=== PATIENT | male | born 1990 | race Caucasian/White ===

== ENCOUNTER 2018-06-03 12:32 | Emergency (ER) | payer OTHER ==
[~2018-06-03] VITALS: Ht 172.7 cm; Wt 59.2 kg
[2018-06-03 12:34] VITALS: Ht 172.7 cm; Wt 59.2 kg
[2018-06-03] MEDS ORDERED: KETOROLAC 30 MG INJ IV STA (12:54)
--- NOTE | 2018-06-03 12:55 | ERD ---
ER Documentation Chief Complaint Chief Complaint sorethroat, right ear pain x1 wk, seen 3x urgent care no relief HPI 27-year-old male, previously healthy, presents to the emergency department, complaining of 1 week with persistent sore throat, associated with right ear pain, cough and general malaise. ROS All systems reviewed and are negative except as per history of present illness. Medications Home Meds Active Scripts Ibuprofen (Ibuprofen) 100 Mg/5 Ml Oral.susp, 15 ML PO Q6H PRN for PAIN AND OR ELEVATED TEMP, #4 OZ Prov:DELROY HUTTON MD 06/03/18 Allergies Allergies: Coded Allergies: Penicillins (Unverified Allergy, Unknown, 06/03/18) PMhx/Soc Hx Alcohol Use: No Hx Substance Use: No Hx Tobacco Use: No Smoking Status: Never smoker FmHx Family History: No diabetes, No coronary disease Physical Exam Vitals Vital Signs Date Temp Pulse Resp B/P (MAP) Pulse Ox O2 O2 Flow FiO2 Time Delivery Rate 06/03/18 98.1 66 16 118/85 99 Room Air 15:55 (96) 06/03/18 97.8 87 18 135/89 99 12:34 (104) Physical Exam Const: No acute distress Head: Atraumatic Eyes: Normal Conjunctiva ENT: Right tonsil enlarged, with bilateral exudates. Neck: Full range of motion. No meningismus. Resp: Clear to auscultation bilaterally Cardio: Regular rate and rhythm, no murmurs Abd: Soft, non tender, non distended. Normal bowel sounds Skin: No petechiae or rashes Back: No midline or flank tenderness Ext: No cyanosis, or edema Neur: Awake and alert Psych: Normal Mood and Affect Result Diagram: 06/03/18 1303 06/03/18 1303 Results 24 hrs Laboratory Tests Test 06/03/18 13:03 White Blood Count 13.7 10^3/ul Red Blood Count 5.30 10^6/ul Hemoglobin 16.0 g/dl Hematocrit 47.8 % Mean Corpuscular Volume 90.2 fl Mean Corpuscular Hemoglobin 30.2 pg Mean Corpuscular Hemoglobin Concent 33.5 g/dl Red Cell Distribution Width 11.7 % Platelet Count 264 10^3/UL Mean Platelet Volume 10.7 fl Immature Granulocytes % 0.500 % Neutrophils % 82.8 % Lymphocytes % 8.2 % Monocytes % 8.1 % Eosinophils % 0.1 % Basophils % 0.3 % Nucleated Red Blood Cells % 0.0 /100WBC Immature Granulocytes # 0.070 10^3/ul Neutrophils # 11.4 10^3/ul Lymphocytes # 1.1 10^3/ul Monocytes # 1.1 10^3/ul Eosinophils # 0.0 10^3/ul Basophils # 0.0 10^3/ul Nucleated Red Blood Cells # 0.0 10^3/ul Sodium Level 137 mmol/L Potassium Level 5.1 mmol/L Chloride Level 99 mmol/L Carbon Dioxide Level 32 mmol/L Anion Gap 6 Blood Urea Nitrogen 14 mg/dl Creatinine 1.20 mg/dl Est Glomerular Filtrat Rate mL/min > 60 mL/min Glucose Level 94 mg/dl Calcium Level 10.4 mg/dl Monoscreen Negative Current Medications Medications Dose Sig/Suleman Start Time Status Last (Trade) Ordered Route PRN Stop Time Admin Dose Reason Admin Sodium 1,000 ml @ Q1H ONCE 06/03/18 DC 06/03/18 Chloride 1,000 mls/hr IV 13:00 06/03/18 13:16 13:59 Clindamycin 50 ml @ 50 ONCE IVPB 06/03/18 DC 06/03/18 HCl/ mls/hr 13:00 06/03/18 13:17 Dextrose 13:59 8 mg ONCE ONCE 06/03/18 DC 06/03/18 Dexamethasone IV 13:00 06/03/18 13:17 (Decadron) 13:01 Ketorolac 30 mg ONCE STAT 06/03/18 DC 06/03/18 Tromethamine IV 12:54 06/03/18 13:17 (Toradol) 12:57 Iodixanol 100 ml STK-MED 06/03/18 DC (Visipaque ONCE .ROUTE 14:06 06/03/18 Locm) 14:07 Sodium 100 ml @ ud STK-MED 06/03/18 DC Chloride ONCE .ROUTE 14:06 06/03/18 14:07 Name: JAYNA ALBRECHT Age/Sex: 27/M Attend Dr: DELROY SHEA Acct: [id number] MR# : [id number] : 1990 Location: [facility] Admit: 06/03/18 Specimen: [id number] Status: Complete Yoko: 06/03/18 Rcvd: 06/03/18-1311 Source: THROAT Sp Descrip: - Procedure Result ------ Microbiology RAPID STREP ANTIGEN BY EIA Final RAPID STREP ANTIGEN ,EIA POSITIVE (Ref Range Neg) Phoned to EBER,[phone],06/03/18.[facility] DI[facility]NOST[facility] IMAGING REPORT Patient: JAYNA ALBRECHT : 1990 Age: 27 Sex: M MR #: [id number] DOS: 06/03/18 1251 Ordering MD: DELROY HUTTON MD Location: E Room/Bed: PROCEDURE: CT neck without and with IV contrast. CLINICAL INDICATION: Sore throat. TECHNIQUE: CT scan of the neck was performed on a 64-slice scanner. The patient scanned following the uncomplicated IV injection of 85 cc Visipaque-320. Coronal and sagittal reformatted images were made. DICOM images are available. One or more of the following dose reduction techniques were used: automated exposure control, adjustment of the mA and/or kV according to patient size, or use of iterative reconstruction technique Total radiation dose: Total 17.9 CTDIvol: mGy. Total DLP: 467 mGy-cm. COMPARISON: None available. FINDINGS: Nasopharynx/infratemporal fossa/skull base: The nasopharynx appears unremarkable. The torus tubarius/fossa Rosenmuller are normal. There is no destructive skull base lesion present. The paranasal sinuses and orbits are unremarkable. The pterygopalatine fossa, air pollution engineer space, pharyngeal mucosal space, parapharyngeal space, retropharyngeal space, parotid space and carotid space are unremarkable. Oropharynx/oral cavity: There is no soft tissue mass present. There is acute right tonsillitis with 2.8 cm x 1.9 cm x 1.5 cm( CC x AP x TR) adjacent peritonsillar abscess. The intrinsic tongue and floor of the mouth musculature are normal. The, sublingual/submandibular spaces and pharyngeal mucosal space appear normal. Hypopharynx/larynx: The larynx is unremarkable. There is edema of the right-sided epiglottis and pyriform sinus, indicating pharyngitis. The hyoid bone, thyroid cartilage, and arytenoid and cricoid cartilages are unremarkable. Lymph nodes: There is no significant lymphadenopathy present. Multipule sub-centimeter lymph nodes are present in the anterior and posterior triangles of the neck. Salivary and thyroid glands: The parotid, submandibular and the region of the sublingual glands are unremarkable. The thyroid glands are normal. Others: The cervical spine is unremarkable. The visualized apical lung is clear. IMPRESSION: 1. Acute right tonsillitis with 2.8 cm x 1.9 cm x 1.5 cm( CC x AP x TR) adjacent peritonsillar abscess. 2. Edema of the right-sided epiglottis and pyriform sinus, indicating pharyngitis. Procedures/MDM Differential diagnosis include but not limited to: Tonsillar/pharyngeal infection bacterial/viral/fungal, parotitis, allergies, GERD. Less likely peritonsillar abscess, retropharyngeal abscess. No signs of upper respiratory obstruction Physical examination and clinical presentation consistent most likely with strep tonsillitis with retrotonsillar abscess. During the ED course the patient remained stable, fever resolved with medications given in the ER, no new complaints. Clinical impression discussed with patient who prefers conservative management over incision and drainage. The patient is stable to be treated outpatient and will be discharged home with instructions to return tomorrow for IV antibiotics. If symptoms persist, worsen or new symptoms develop, then patient should return to the ED immediately. Disclaimer: Inadvertent spelling and grammatical errors are likely due to EHR/dictation software use and do not reflect on the overall quality of patient care. Also, please note that the electronic time recorded on this note does not necessarily reflect the actual time of the patient encounter. Departure Diagnosis: Primary Impression: Strep tonsillitis Condition: Stable ( ) Additional Instructions: Thank you very much for allowing us to participate in your care. Your health and safety is our top priority at [facility]. Please return to the emergency department tomorrow at 10 AM for IV antibiotics. Have prescriptions filled and follow precisely the directions on the label. If the symptoms get worse and your provider is unavailable, return to the Em ergency Department immediately. DELROY HUTTON MD Jun 03, 2018 12:55
[2018-06-03] MEDS ORDERED: SOD CHLORIDE 0.9% 1,000 ML IV ONE (13:00)
[2018-06-03] MEDS ORDERED: DEXAMETHASONE 10 MG/ML 1 ML INJ IV ONE (13:00)
[2018-06-03] MEDS ORDERED: CLINDAMYCIN 900 MG/D5W (PMX) 50 ML IVPB SCH (13:00)
[2018-06-03] MEDS ORDERED: SOD CHLORIDE 0.9% 100 ML ONE (14:06)
[2018-06-03] MEDS ORDERED: IODIXANOL LOCM 100 ML BTL ONE (14:06)
--- NOTE | 2018-06-03 14:46 | NUR ---
Procedure Ordered: CT ST NECK W/WO Reason for Exam Today: RIGHT RETROTONSILLAR EDEMA Previous Exams: Allergies: Current Medications Taken: Glucophage ( ) Metformin ( ) Previous reaction to contrast media: Yes ( ) No ( X) : Yes ( ) No ( X) Asthma: Yes ( ) No ( X) Diabetes: Yes ( ) No ( X) Myeloma: Yes ( ) No (X ) Heart Disease: Yes ( ) No (X ) Cardiac Disease: Yes ( ) No (X ) Kidney Disease: Yes ( ) No ( X Vascular Disease: Yes ( ) No ( X) Patient Teaching done: Yes ( X) No ( ) Primary Mill Roller Used: Yes ( ) No ( X) Name of Primary Mill Roller: Language Used: As part of the test requested by your doctor, contrast media may be injected into your vein while the x-rays are being taken. Occasionally, reactions from IV contrast may occur. The physician and staff of this hospital are trained to treat these reactions. Select the type of Contrast that will be given to patient: Omnipaque 300 ( ) Omnipaque 350 ( ) Visipaque 320 (X ) Cystografin ( ) Gastrographin ( ) Redi-cat ( ) Volumen ( ) Amount of contrast to be given: 85CC IV (X ) PO ( ) Date given:06/03/18 Lab Values: BUN: 14 Creatinine: 1.2 eGFR: Reason why contrast cannot be given: Location of patient pre-procedure:ED2 BED 23 Location of patient post procedure:ED2 BED 23 Patient tolerated exam well and returned to unit.
[2018-06-03] MEDS ORDERED: IBUP100O28 PO (15:21)
[2018-06-03 15:55] VITALS: BP 118/85; PULSE 66; RESP 16
[2018-06-04] MEDS ORDERED: CLIN300C10 PO (12:53)
[2018-06-04] MEDS ORDERED: IBUP-1561 PO (12:53)
[2018-06-04] MEDS ORDERED: HYDR-4011 PO (12:53)
== END 2018-06-03 15:55 | disposition home or self-care (01) ==
LOC: FTE 12:32
DX: J03.00 Acute streptococcal tonsillitis, unspecified (principal)
CPT/HCPCS: 36415; 70492; 80048; 85025; 86308; 87880; 96374; 96375; 99285; J1100; J1885; J7030; Q9967